=== PATIENT | male | born 1985 | race Caucasian/White ===

== ENCOUNTER 2020-09-18 09:18 | Emergency (ER) | payer MEDICAID, OTHER ==
[~2020-09-18] VITALS: Ht 180.3 cm; Wt 84.2 kg
[2020-09-18] MEDS ORDERED: MIDAZolam 5mg/ml 2ml vial IV PRN ×2 (10:15→10:25)
[2020-09-18 11:19] LABS: ALBUMIN 3.8 G/DL (3.4-5.0); ANION GAP 7 (8-16); BLOOD UREA NITROGEN 19 MG/DL (7-18); BUN/CREATININE RATIO 18.6 (5.4-32.0); CALCIUM 8.9 MG/DL (8.5-10.1); CHLORIDE 105 MMOL/L (99-107); CREATININE 1.02 MG/DL (0.60-1.10); GLUCOSE 101 MG/DL (70-104); POTASSIUM 3.9 MMOL/L (3.5-5.1); SODIUM 140 MMOL/L (135-145); TOTAL CARBON DIOXIDE 27.6 MMOL/L (24-32); eGFR 84 ML/MIN
--- NOTE | 2020-09-18 16:05 | NUR ---
PATIENT REMAINS DROWSY, BUT IS COOPERATIVE AND ABLE TO STATE HIS NAME.
--- NOTE | 2020-09-18 17:24 | NUR ---
PATIENT AWAKE AND UP IN ROOM, LOOKING FOR CIGARETTES AND CELL PHONE. ONLY BELONGINGS THAT ACCOMPANIED PATIENT ARE CLOTHES, LANYARD WITH KEYS ATTACHED, DEBIT CARD WITH SOMEONE ELSE'S NAME ON IT. PATIENT INFORMED THAT FAMILY WILL BE COMING TO PICK HIM UP. PATIENT INSTRUCTED TO REST ON GURNEY UNTIL RIDE ARRIVES.
[2020-09-18 18:27] LABS: ETHANOL < 0.010 GM/DL (0.0-0.010)
--- NOTE | 2020-09-18 18:56 | NUR ---
Assumed care, pt pacing at foot of bed, A&Ox4 stating he wants to go home. I advised pt he needs to provide a urine sample first, and he should lay down. Pt states he has been laying down all day and doesn't want to at this time.
--- NOTE | 2020-09-18 19:31 | NUR ---
PTS FAMILY MEMEBERS ARRIVED AND WERE WAITING IN LOBBY. PT WAS D\C'D AND IV REMOVED AND WHEN I WENT TO GET THE FAMILY MEMBERS I WAS TOLD THEY LEFT TO GET SOMETHING TO EAT. PT WAS ASKED TO STAY IN HIS ROOM AND AWAIT THEIR RETURN BUT HE IS NOT WILLING TO DO SO AND LEFT.
[2020-09-18 19:33] VITALS: BP 122/82
== END 2020-09-18 19:36 | disposition home or self-care (01) ==
LOC: EDBD 09:21 → ER 09:21
DX: R41.82 Altered mental status, unspecified (principal); R00.0 Tachycardia, unspecified
CPT/HCPCS: 36415; 70450; 72125; 80048; 80320; 93005; 96374; 99285; J2250